=== PATIENT | male | born 1980 | race Caucasian/White ===

== ENCOUNTER 2023-12-11 08:18 | Outpatient (CLI) | payer BC, SELFPAY | END 2023-12-11 08:19 | disposition home or self-care (01) | LOC: FBOREF 08:18 | PROVIDERS: PCP Family Medicine; Visit Provider Family Medicine | DX: Z13.6 Encounter for screening for cardiovascular disorders (principal); K76.0 Fatty (change of) liver, not elsewhere classified; I10 Essential (primary) hypertension | CPT/HCPCS: 80061 ==

== ENCOUNTER 2024-09-04 07:10 | Outpatient (CLI) | payer BC, SELFPAY ==
--- NOTE | 2024-09-04 07:15 | CRLHL7_ITS ---
For Patients: As a result of the Century Cures Act, medical imaging exams and procedure reports are released immediately into your electronic medical record. You may view this report before your referring provider. If you have questions, please contact your health care provider. INDICATION: Abdominal pain COMPARISON: none TECHNIQUE: Real time harding scale imaging and color Doppler analysis was performed of the right upper quadrant. FINDINGS: Liver echotexture is increased. Liver measures 19.2 cm. No intrahepatic mass. There is a normal appearance of the hepatic IVC and proximal abdominal aorta. There is no evidence of ascites. The gallbladder is of normal size and there are 2 echogenic foci associated with the non dependent gallbladder wall measuring 4 millimeters each. The gallbladder wall measures 2 mm in thickness. The common bile duct is of normal size and measures 4 mm in diameter at the level of the lazaro hepatis. The pancreas appears normal. Cyst within the right kidney with peripheral calcifications measures 1.9 x 1.2 x 1.8 cm. The right kidney measures 11.9 cm in length. IMPRESSION: Hepatomegaly with hepatic steatosis. Gallbladder polyps measuring up to 4 millimeters. Bosniak 2 right renal cyst measuring 1.9 cm. Dictated by Floyd Sanders MD @ 09/04/2024 8:32:00 AM (Electronically Signed)
--- OUTSIDE RECORDS SUMMARY | 2024-09-05 00:31 | XMS_ITS | Clinical Summary ---
Author Organization [employer] [facility] Address [address] [place] [address] Care Team Providers Care Astronomy Department Chair Name Role Phone None Primary Care Provider Unavailabl e Pcp, No Unavailable Unavailable Allergies No known active allergies Medications allopurinoL (ZYLOPRIM) 300 mg tablet 2 Active gabapentin (NEURONTIN) 300 mg capsule TAKE ONE CAPSULE BY MOUTH EVERY NIGHT FOR 3 DAYS. IF SYMPTOMS NOT IMPROVED INCREASE NEEDED PER MED SCHEDULE TO MAX OF 3 CAPSULES 3 TIMES DAILY 1 Active albuterol HFA (PRO-AIR; VENTOLIN; PROVENTIL) 90 mcg/actuation inhalerIndicati ons:Cough Inhale 2 Puffs by mouth every 4 hours if needed (cough or wheezing). 1 Each 2 Active fenofibrate (LOFIBRA) 54 mg tablet Take 54 mg by mouth once daily. 2 Active amLODIPine (NORVASC) 5 mg tablet Take 5 mg by mouth. 2 Active fluticasone (50 mcg per actuation) nasal solution (FLONASE) Inhale 2 Sprays into affected nostril(s). 2 Active benzonatate (Tessalon Perles) 100 mg capsuleIndicati ons:Bronchitis Take 1 Capsule (100 mg) by mouth 3 times daily if needed for Cough. 21 Capsule 2 Active albuterol HFA (Ventolin HFA) 90 mcg/actuation inhalerIndicati ons:Bronchitis Inhale 2 Puffs by mouth 4 times daily if needed for Shortness Of Breath. 1 Each 2 Active Active Problems Problem Noted Date Diagnosed Date No Significant Past Medical History 09/21/2014 Acute bronchitis 05/10/2007 Overview (07/16/2013): Acute Bronchitis Acute sinusitis, unspecified 05/10/2007 Overview (07/16/2013): Acute Sinusitis Immunizations Immunization Administration Dates Next Due Tdap 08/14/2023,09/19/2007 Family History Medical History Relation Name Comments Diabetes Father GI Disease Mother Relation Name Status Comments Father Mother Social History Tobacco Use Types Packs/Day Years Used Date Smoking Tobacco: Former Cigarettes Smokeless Tobacco: Never Tobacco Cessation:Ready to Q uit: No; Counseling Given: Yes Alcohol Use Standard Drinks/Week Comments Yes 0 (1 standard drink = 0.6 oz pur e alcohol) Interpersonal Safety Answer Date Record ed Are you being hit, kicked, p ushed or yelled at (see row info)? 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 Gender Identity Not on file Sexual Orientation Not on file Obstetrics History Last Filed Vital Signs Vital Sign Reading Time Taken Comments Blood Pressure 195/87 08/14/2023 4:26 PM CDT Pulse 79 08/14/2023 4:26 PM CDT Temperature 36.9 C (98.4 F) 08/14/2023 4:26 PM CDT Respiratory Rate 18 08/14/2023 4:26 PM CDT Oxygen Saturation 95% 08/14/2023 4:26 PM CDT Inhaled Oxygen Concentration - - Weight 129.6 kg (285 lb 11.2 oz) 2021 12:15 PM CDT Height 182.9 cm (6') 09/20/2014 9:33 AM CDT Body Mass Index 38.75 09/20/2014 9:33 AM CDT Plan of Treatment Health Maintenance Due Date Last Done Comments Depression screening for age 12+ 1993 HIV for age 15-65 02/06/1996 BMI (ht and wt on same day) for age 18+ 1999 Hepatitis C screening for ag e 18-79 1999 Hepatitis B series for 19+ ( 1 of 3 - 19+ 3-dose series) 02/06/2000 Lipids for age 35-44 02/06/2016 COVID-19 vaccine series (2 - 2023- season) 2023 02/13/2021 Influenza Vaccine (Season Ended) 2024 Tetanus booster 08/13/2033 08/14/2023, 09/19/2007 Tdap Completed 08/14/2023, 09/19/2007 Pneumococcal series for age 6-49 Aged Out No longer eligible b ased on patient's age to complete this topic Insurance [id number] [facility] [place] [id number] [facility] Care Teams Astronomy Department Chair Relationship Specialty Start Date End Date None . PCP - General 02/10/15 Pcp, No . 03/15/12
--- OUTSIDE RECORDS SUMMARY | 2024-09-05 00:31 | XMS_ITS | Clinical Summary ---
Author Organization [facility] Address [address] [place] [address] Care Team Providers Care Eye Glass Frame Polisher Name Role Phone System, Pcp Not In Primary Care Provider Unavail able Source Comments You are receiving this document as you are listed as the primary care provider,follow-up provider, or the patient has been referred to you for consultation.This is in compliance with the Medicare andCommunity Regional Medical Cent[facility]aid EHR Incentive Program,which states Providers who transition their patient to another setting of careor provider of care or refers their patient to another provider of care shouldprovide summary care record for each transition of care or referral. [facility] Allergies No known active allergies Medications ALBUterol sulfate HFA 108 (90 BASE) MCG/ACT inhaler Inhale 1-2 Puffs every 4 hours as needed for Shortness of Breath. 18 g 0 6 Active Active Problems Problem Noted Date Diagnosed Date Lumbosacral radiculitis 09/20/2007 Overview (10/31/2016): LW Onset: 05/2007 ; Radiculopathy Lumbar 5 Left Immunizations Immunization Administration Dates Next Due TDAP (ADACEL) 09/19/2007 Social History Tobacco Use Types Packs/Day Years Used Date Smoking Tobacco: Every Day Cigarettes Smokeless Tobacco: Never Alcohol Use Standard Drinks/Week Comments Yes 0 (1 standard drink = 0.6 oz pur e alcohol) Sex and Gender Information Value Date Recorded Sex Assigned at Not on file Legal Sex Male 6:16 AM CDT Gender Identity Not on file Sexual Orientation Not on file Last Filed Vital Signs Vital Sign Reading Time Taken Comments Blood Pressure 148/88 02/20/2016 4:02 PM TEST DESIGNER Pulse 67 02/20/2016 4:02 PM TEST DESIGNER Temperature 36.9 C (98.5 F) 02/20/2016 4:02 PM TEST DESIGNER Respiratory Rate 16 02/20/2016 4:02 PM TEST DESIGNER Oxygen Saturation 95% 02/20/2016 4:02 PM TEST DESIGNER Inhaled Oxygen Concentration - - Weight 127.7 kg (281 lb 9.6 oz) 011 11:30 AM CDT Height 185.4 cm (6' 1) 03/02/2008 2:17 PM TEST DESIGNER Body Mass Index 37.15 03/02/2008 2:17 PM TEST DESIGNER Plan of Treatment Health Maintenance Due Date Last Done Comments Hep C Screening (Preventive Services) 1981 Adult Preventive Visit 1999 HepB Vaccine (1) 02/06/2000 Cholesterol 02/06/2016 DTaP/Tdap/Td Vaccine (2 - Tdap) 09/18/2017 8 COVID-19 Vaccine ( - 2023-2 5 season) 2023 Influenza Vaccine (Season Ended) 2024 Zoster/Shingles Vaccine (1 of 2) 2031 HIV Screening (Preventive Services) Completed 04/23/2007 HPV Vaccine Aged Out No longer eligi ble based on patient's age to complete this topic HepA Vaccine Aged Out No longer eligi ble based on patient's age to complete this topic Hib Vaccine Aged Out No longer eligi ble based on patient's age to complete this topic IPV (Polio) Vaccine Aged Out No longe r eligible based on patient's age to complete this topic MCV4 Vaccine Aged Out No longer eligi ble based on patient's age to complete this topic Meningococcal B Vaccine Aged Out No l onger eligible based on patient's age to complete this topic Pneumococcal Vaccine Aged Out No long er eligible based on patient's age to complete this topic Procedures Procedure Name Priority Date/Time Associated Diagnosis Comments HIV ANTIBODY Routine 04/23/2007 3:32 PM TEST DESIGNER from Last 3 Months or Most Recently Relevant to Health Maintenance Results * HIV Antibody (04/23/2007 3:32 PM TEST DESIGNER) HIV 1/HIV 2 Non Reac Non Reac HP CONVERSION 04/23/2007 3:32 PM TEST DESIGNER us Dot Honeycutt MD LAB_1 Final Result HP CONVERSION from Last 3 Months or Most Recently Relevant to Health Maintenance Insurance [place] [id number] [place] [id number] [facility] Member Subscriber Plan / Payer (Ef fective 2015-Present) Name:John Sanchez Relation to Subscriber:Self Name:John Sanchez Payer ID:[id number] (NAIC) Group ID:[id number] Type:Commercial Address: [facility] [address] [place] [address] Care Teams Eye Glass Frame Polisher Relationship Specialty Start Date End Date System, Pcp Not In PCP - General 11/10/15
--- OUTSIDE RECORDS SUMMARY | 2024-09-05 00:31 | XMS_ITS | Encounter Summary ---
Author Organization [facility] Address [address] [place] [address] Care Team Providers Care Carton Forming Machine Tender Name Role Phone None Reported, Pcp Primary Care Provider Unavail able Reason for Visit * Reason Onset Date Comments Health Maintenance 07/28/2024 Encounter Details Date Type Department Care Team (Latest Contact Info) Description 07/28/2024 Clinical Communication Department of Family Medicine, [facility], in [place], [place] [address] [place] [id number] Mesfin Brunson D.O. [address] [place] [id number] Health Maintenance Social History Tobacco Use Types Packs/Day Years Used Date Smoking Tobacco: Former Smokeless Tobacco: Never Comments:quit dec 2019 Alcohol Use Standard Drinks/Week Comments Not Currently 0 (1 standard drink = 0.6 oz pur e alcohol) socailly once in awhile [facility] Utilities Answer Date Recorded In the past 12 months has [facility] [email or web address], oil, or water [employer] threatened to shut off services in your home? Patient declined 06/06/2023 Humiliation, Afraid, Rape, and Kick questionnair e Answer Date Recorded Within the last year, have y ou been afraid of your partner or ex-partner? Patient declined 10/17/2021 Within the last year, have y ou been humiliated or emotionally abused in other ways by your partner or ex-partner? Patient declined 10/17/2021 Within the last year, have y ou been kicked, hit, slapped, or otherwise physically hurt by your partner or ex-partner? Patient declined 10/17/2021 Within the last year, have y ou been raped or forced to have any kind of sexual activity by your partner or ex-partner? Patient declined 10/17/2021 Hunger Vital Sign Answer Date Recorded Within the past 12 months, y ou worried that your food would run out before you got the money to buy more. Patient declined Within the past 12 months, t he food you bought just didn't last and you didn't have money to get more. Patient declined PRAPARE - Transportation Answer Date Re corded In the past 12 months, has l ack of transportation kept you from medical appointments or from getting medications? Patient declined 06/06/2023 In the past 12 months, has l ack of transportation kept you from meetings, work, or from getting things needed for daily living? Patient declined 06/06/2023 Housing Stability Answer Date Recorded What is your living situation today? 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 - 07/28/2024 11:43 AM CDT I reached out to the patient today via phone call and I was able to reach the patient. This is the 1st contact by the [facility] team to schedule preventive care services. The preventive care topics I outreached about include: Follow Up PCP Visit The outcome of this communication includes: PCP Change - Request Sent The [facility] team will contact the patient again if patient returns to [place] primary care. Next Primary Care appointment: does not have a visit scheduled in Primary Care Last appointment with their PCP: Not available Additional services offered: None Naila Camargo LPN Preventative Health Specialist documented in this encounter Plan of Treatment Not on file documented as of this encounter Visit Diagnoses Not on filedocumented in this encounter Care Teams Carton Forming Machine Tender Relationship Specialty Start Date End Date None Reported, Pcp PCP - General Family Medicine 07/28/24 documented as of this encounter
--- OUTSIDE RECORDS SUMMARY | 2024-09-05 00:32 | XMS_ITS | Clinical Summary ---
Author Organization [facility] Address [address] [place] [address] Care Team Providers Care Lending Advisor Name Role Phone None Reported, Pcp Primary Care Provider Unavail able Source Comments Patient records contain information from all sites at [facility]. For routine questions regarding patient records, call [phone] during business hours, M-F 8:00 AM - 5:00 PM Central Time. Record requests for emergency care only can be directed to [phone] at any time.[facility] Allergies No known active allergies Medications * This document contains information received from the source organization and may not represent a complete record from that organization. ibuprofen (ADVIL,MOTRIN) 100 mg tablet Take 200 mg by mouth every 4 (four) hours. Active naproxen sodium (ALEVE/ANAPROX) 220 mg tablet Take 220 mg by mouth 2 (two) times a day as needed for pain. Active fenofibrate micronized (LOFIBRA) 67 mg capsule TAKE 1 CAPSULE BY MOUTH ONCE DAILY IN THE MORNING BEFORE BREAKFAST 90 capsule 3 3 Active amLODIPine (NORVASC) 5 mg tabletIndicatio ns:Hypertension Essential Primary Take 1 tablet (5 mg total) by mouth daily. 90 tablet 3 3 Active albuterol 90 mcg/actuation inhaler Inhale 2 puffs 4 (four) times a day as needed for shortness of breath. 2 Active azelastine (ASTELIN) 137 mcg/spray (0.1 %) nasal spray Administer 2 sprays into each nostril 2 (two) times a day. Use in each nostril as directed 30 mL 11 3 Active cyclobenzaprine (FLEXERIL) 10 mg tablet Take 1 tablet (10 mg total) by mouth 3 (three) times a day as needed for muscle spasms. 30 tablet 4 Active fluticasone propionate (FLONASE) 50 mcg/actuation nasal spray Use 2 spray(s) in each nostril once daily 48 g 3 4 Active albuterol (Ventolin HFA) 90 mcg/actuation inhaler Inhale 2 puffs every 4 (four) hours as needed for wheezing or shortness of breath for up to 10 days. 18 g 4 Active allopurinoL (Zyloprim) 300 mg tablet Take 1 tablet by mouth once daily 90 tablet 3 4 Active escitalopram (Lexapro) 10 mg tablet TAKE 1 TABLET BY MOUTH DAILY 90 tablet 4 Active Active Problems Problem Noted Date Diagnosed Date Morbid Severe Obesity Due To Excess Calories Sinusitis Chronic Maxillary 02/11/2023 Hypertension Essential Primary 08/23/2021 Gout 12/15/2019 Obesity Body Mass Index 30-39.9 Adult 12/15/2019 Pain Low Back Unspecified 12/15/2019 Nicotine Dependence Cigarettes In Remission 08/2019 Radiculopathy Lumbar Fourth Encounters Date Type Department Care Team Description 07/28/2024 Clinical Communication Department of Family Medicine, [facility], in [address] [phone] Mesfin Brunson, D.O. Health Maintenance from Last 3 Months Immunizations Immunization Administration Dates Next Due DTaP (Infanrix, Tripedia) 09/22/1986 HepB Adult (HEPLISAV-B) 03/28/2023(Deferred: Pat ient Refused) Polio, Unspecified 09/22/1986 SARS-COV-2 (COVID-19) - MODE RNA (12 YEARS AND OLDER) Fall Seasonal 03/28/2023(Deferred: Patient Refused) Td Preservative Free (TENIVA C, DECAVAC) 12/14/2019 Tdap 09/19/2007 influenza trivalent vaccine (6 months and older)(PF) 03/28/2023(Deferred: Patient Refused) Family History Medical History Relation Name Comments Diabetes Father Heart attack Maternal Grandfather Heart attack Paternal Grandfather Relation Name Status Comments Father Maternal Grandfather Paternal Grandfather Social History Tobacco Use Types Packs/Day Years Used Date Smoking Tobacco: Former Smokeless Tobacco: Never Tobacco Cessation:Counseling Given: Not Answered Comments:quit dec 2019 Alcohol Use Standard Drinks/Week Comments Not Currently 0 (1 standard drink = 0.6 oz pur e alcohol) socailly once in awhile [facility] Utilities Answer Date Recorded In the past 12 months has e [employer], gas, oil, or water [employer] threatened to shut off services in your [...] AM CDT Legal Sex Male 9:29 PM CANADIAN BACON TIER Gender Identity Male 05/05/2020 9:12 AM CANADIAN BACON TIER Sexual Orientation Straight 05/05/2020 9: 12 AM CANADIAN BACON TIER Last Filed Vital Signs Vital Sign Reading Time Taken Comments Blood Pressure 144/51 06/03/2023 10:50 AM CDT Pulse 68 06/03/2023 10:50 AM CDT Temperature 36.3 C (97.3 F) 06/03/2023 10:45 AM CDT Respiratory Rate 16 06/03/2023 10:45 AM CDT Oxygen Saturation 100% 06/03/2023 10:50 AM CDT Inhaled Oxygen Concentration - - Weight 121 kg (265 lb 10.5 oz) 05/22/2023 4:23 P M CDT Height 182.9 cm (6' 0.01) 03/28/2023 11:[address] Body Mass Index 36.02 03/28/2023 11:15 AM CANADIAN BACON TIER Plan of Treatment Health Maintenance Due Date Last Done Comments Hepatitis C Screening 1981 IPV Vaccines (2 of 3 - 4-dose series) 10/20/1986 09/22/1986 Hepatitis B Vaccines (1 of 3 - 19+ 3-dose series) 02/06/2000 COVID-19 Vaccine (2 - season) 2023 02/13/2021 Influenza Vaccine (#1) 2023 Depression Screening (Annual PHQ-2) 03/11/2024 Office Visit for Blood Pressure Check / Re-check 03/28/2024 03/28/2023 Lipid (Cholesterol) Screening 11/27/2026 11/27/2021, 08/18/2021, 07/17/2021, Additional history exists DTaP,Tdap,and Td Vaccines (5 - Td or Tdap) 08/13/2033 08/14/2023, 12/14/2019, 09/19/2007, Additional history exists HPV Vaccines Aged Out No longer eligi ble based on patient's age to complete this topic Pneumococcal vaccine (0-49 years) Aged Out No longer eligible based on patient's age to complete this topic Procedures Procedure Name Priority Date/Time Associated Diagnosis Comments LIPID PANEL, S Routine 11/27/2021 8:29 AM CDT Hypertriglyceridemia from Last 3 Months or Most Recently Relevant to Health Maintenance Results * (ABNORMAL) Lipid Panel (11/27/2021 8:29 AM CDT) Triglycerides 465(H) mg/dL 11/27/2021 8:52 AM CDT [facility] Comment: ----REFERENCE VALUE---- Normal: <150 mg/dL Borderline High: 150-199 mg/dL High: 200-499 mg/dL Very High: > or =500 mg/dL Cholesterol, Total 196 mg/dL 2021 8:52 AM CDT [facility] Comment: ----REFERENCE VALUE---- Desirable: < 200 mg/dL Borderline High: 200 - 239 mg/dL High: > or = 240 mg/dL Cholesterol, LDL, Calculated 90 mg/dL 11/27/2021 8:52 AM CDT [facility] Comment: ----REFERENCE VALUE---- Desirable: <100 mg/dL Above Desirable: 100-129 mg/dL Borderline High: 130-159 mg/dL High: 160-189 mg/dL Very High: >=190 mg/dL ----ADDITIONAL INFORMATION---- LDL cholesterol calculated using the Nair/NIH equation. Cholesterol, HDL 29(L) >=40 mg/dL 11/28/19 8:52 AM CDT [facility] Cholesterol, Non-HDL, Calculated 167(H) mg/dL 11/27/2021 8:52 AM CDT [facility] Comment: ----REFERENCE VALUE---- Desirable: <130 mg/dL Above Desirable: 130-159 mg/dL Borderline High: 160-189 mg/dL High: 190-219 mg/dL Very High: > or =220 mg/dL Fasting (8 HR or more) Yes 11/27/2021 8:29 AM CDT [facility] Blood (Blood, Venous) 11/27/2021 8:29 AM CDT 11/27/2021 8:29 AM CDT us Isidro Dasilva P.A.-C., M.S. LAB BLOOD ADD-ON Fin al Result [facility] [address] [place] [id number], [facility] in [place] [place] [id number] from Last 3 Months or Most Recently Relevant to Health Maintenance Insurance [id number] [place] [id number] [facility] [place] [address] Care Teams Lending Advisor Relationship Specialty Start Date End Date None Reported, Pcp PCP - General Family Medicine 07/28/24
== END 2024-09-04 07:11 | disposition home or self-care (01) ==
LOC: US 07:10
PROVIDERS: PCP Family Medicine; Visit Provider Family Medicine
DX: R10.9 Unspecified abdominal pain (principal); R16.0 Hepatomegaly, not elsewhere classified; K76.0 Fatty (change of) liver, not elsewhere classified; K82.4 Cholesterolosis of gallbladder; N28.1 Cyst of kidney, acquired
CPT/HCPCS: 76705

== ENCOUNTER 2024-10-06 13:51 | Outpatient (CLI) | payer BC, SELFPAY ==
--- NOTE | 2024-10-06 13:45 | CRLHL7_ITS ---
For Patients: As a result of the Century Cures Act, medical imaging exams and procedure reports are released immediately into your electronic medical record. You may view this report before your referring provider. If you have questions, please contact your health care provider. INDICATION: Low back pain. COMPARISON: None. TECHNIQUE: Sagittal T1, T2, and STIR sequences. Axial T1 and T2 weighted sequences. FINDINGS: Lumbar curve convex the left. In the sagittal plane, normal alignment. No fractures. No vertebral body loss of height. No spondylolisthesis. No ligamentous injury. No suspicious osseous lesions. Normal conus terminates at L1. Mild marrow edema of the articular processes of the left L3-4 facet joint which may be secondary to stress reaction or mild inflammation facet arthritis. T12-L1 L1-2: No spinal canal or neural foraminal narrowing. L2-3: Disc degeneration diffuse disc bulge eccentric to the left. No narrowing of spinal canal. No neural foraminal narrowing. L3-4: Disc degeneration loss disc height. Modic type 1 endplate changes. Diffuse disc bulge eccentric to the right. Mild narrowing of spinal canal. Moderate severe narrowing of the right neural foramen. No narrowing of left neural foramen. Potential impingement of the exiting right L3 nerve root. Mild facet arthropathy. L4-5: Disc degeneration and diffuse disc bulge eccentric to the left. Mild narrowing of the spinal canal. No narrowing of the right neural foramen. Mild to moderate narrowing of the left neural foramen. Mild facet arthropathy. L5-S1: Disc degeneration. Diffuse disc bulge. No narrowing of the spinal canal. No impingement of the traversing S1 nerve roots. Mild narrowing of bilateral foramina. Degenerative changes of the SI joints. Normal paraspinal soft tissues. IMPRESSION: 1. Normal alignment. No fractures 2. Lumbar spondylosis 3. At L3-4, mild narrowing of the spinal canal. Moderate to severe narrowing of the right neural foramen. Potential impingement of the exiting right L3 nerve root 4. At L4-5, mild narrowing of the spinal canal. [id number] narrowing of the left neural foramen. 5. At L5-S1, mild narrowing of the bilateral neural foramina Dictated by Mayco Cifuentes MD @ 10/07/2024 1:20:28 PM (Electronically Signed)
== END 2024-10-06 13:52 | disposition home or self-care (01) ==
LOC: MRI 13:52
PROVIDERS: PCP Family Medicine; Visit Provider Family Medicine
DX: M54.50 Low back pain, unspecified (principal); M47.896 Other spondylosis, lumbar region; M51.26 Other intervertebral disc displacement, lumbar region; M51.27 Other intervertebral disc displacement, lumbosacral region; G89.29 Other chronic pain; M54.30 Sciatica, unspecified side
CPT/HCPCS: 72148

== ENCOUNTER 2024-11-10 13:03 | Outpatient (CLI) | payer BC, SELFPAY | END 2024-11-10 13:04 | disposition home or self-care (01) | LOC: INJ CL 13:04 | PROVIDERS: PCP Family Medicine; Visit Provider Family Medicine | DX: M54.16 Radiculopathy, lumbar region (principal); M51.369 Other intervertebral disc degeneration, lumbar region without mention of lumbar back pain or lower extremity pain | CPT/HCPCS: 64483; J1100; J2250; J3010; Q9966 ==

== ENCOUNTER 2024-12-16 11:07 | Outpatient (CLI) | payer BC, SELFPAY | END 2024-12-16 11:08 | disposition home or self-care (01) | PROVIDERS: PCP Family Medicine; Visit Provider Family Medicine | DX: I10 Essential (primary) hypertension (principal) | CPT/HCPCS: 80048; 85025 ==

== ENCOUNTER 2024-12-18 10:36 | Day surgery (SDC) | payer BC, SELFPAY ==
[2024-12-18] VITALS (17 sets, daily range): BP systolic 134–199; BP diastolic 70–113; PULSE 78–111; RESP 10–22; TEMP 35.9–37.3; O2SAT 88–100; BMI 37.5
[2024-12-18] MEDS: LACTATED RINGERS 1000 ML 1,000 ML 100 ML IV ×2 (10:55→14:00)
[2024-12-18] MEDS: SODIUM CHLORIDE 0.9 % (FLUSH) 10 ML SYRINGE IVF (11:37)
[2024-12-18] MEDS: BUPIVACAINE 0.5%/EPINEPHRINE 0.9 MG (30.9 ML) INJECTION (13:09)
[2024-12-18] MEDS: AYR SALINE NASAL GEL 1 APPLIC NOSTRIL-B (13:13)
[2024-12-18] MEDS: MUPIROCIN 1 GM PACKET 1 APPLIC TOPICAL (13:27)
--- NOTE | 2024-12-18 13:35 | P.ENTPROC_ITS ---
Procedure Note Date of procedure: 12/18/24 Procedure: Preop diagnosis nasal obstruction, deviated septum, bilateral inferior turbinate hypertrophy Postoperative diagnosis same Procedure nasal septoplasty, submucous partial resection inferior turbinates bilateral Packing bilateral stents, bilateral Merocel, bilateral positive pack dissolvable Under general trach anesthesia patient was prepped draped usual fashion nose decongested injected. The right inferior turbinate was outfractured. A stab incision was made in the anterior head and a conservative anterior submucous resection performed. The Coblation was used for hemostasis and to cauterize intramurally along the inferior 10%. This was repeated on the left side in identical fashion A right hemitransfixion incision was made bilateral anterior and posterior tunnels were created. A vertical incision was made cartilage from bone the posterior deflected portions of septal bone resected a piece trimmed and returned to intraseptal space. Anteriorly the septum was resected inferiorly about 1 mm strip which allowed the anterior septum to return to midline. The hemitransfixion was closed with 2 4-0 fast-absorbing Vicryl so. Silastic stents were secured with 3-0 nylon. Positive pack was placed in the mi ddle meatus and then below that a Merocel pack was placed on each side. The patient procedure well was taken recovery in satisfactory condition blood loss was 50 mL. Surgeon: Rigo Woods MD
--- NOTE | 2024-12-18 13:48 | P.ANES_ITS ---
Anesthesia Charges Start Date/Time Anesthesia Start Date: 12/18/24 Anesthesia Start Time: 12:50 Stop Date/Time Anesthesia Stop Date: 12/18/24 Anesthesia Stop Time: 13:48 Coding CPT Codes CPT Codes: ANESTH NOSE/SINUS SURGERY - 35061 ([id number]) P3 - PATIENT W/SEVERE SYS DISEASE, QK - FURNACE CHARGER 2-4 CNCRNT ANES PROC, QX - MARKETING STRATEGY LEAD SVC W/ MD MED DIRECTION
--- NOTE | 2024-12-18 13:48 | W.ANESCHARGE ---
Anesthesia Charges Start Date/Time Anesthesia Start Date: 12/18/24 Anesthesia Start Time: 12:50 Stop Date/Time Anesthesia Stop Date: 12/18/24 Anesthesia Stop Time: 13:48 Coding CPT Codes CPT Codes: ANESTH NOSE/SINUS SURGERY - 30706 ([id number]) P3 - PATIENT W/SEVERE SYS DISEASE, QK - ACT ENGLISH TUTOR 2-4 CNCRNT ANES PROC, QX - FOOT CASTER SVC W/ MD MED DIRECTION
[2024-12-18] MEDS: METOPROLOL TARTRATE 1 MG/ML inj 5 MG IVP (15:30)
[2024-12-18] MEDS: ACETAMINOPHEN 500 MG TABLET PO (18:12)
--- NOTE | 2024-12-18 18:39 | PC.NURSE ---
Progress Note Pt to floor at 1430, Pt a/o x4, pain 5-7/10 Meds given per mar. Up adlib, Dressing changed as needed due to saturation. Pt denies nausea able to tolerate reg diet.
[2024-12-19 03:14] VITALS: BP 136/70; PULSE 70; RESP 18; TEMP 36.7; O2SAT 98
[2024-12-19 07:00] VITALS: BP 148/77; PULSE 87; RESP 12; TEMP 35.9; O2SAT 95
--- NOTE | 2024-12-19 08:21 | PM.EN ---
Chart Event Note Date Seen: 12/19/24 Chart Event Note: Patient followed by hospitalist team, noted to have elevated BP, started Lisinopril 10mg in addition to home Amlodipine. Routine PCP f/u.
--- NOTE | 2024-12-19 09:58 | PC.NURSE ---
D/C Note Pt cooperative with cares, A/o x4, Ind in room. Pt and spouse given education verbally and written about wound care, medications and activity orders. Pt and spouse had no concerns at time of discharge, IV removed, cath tip intact, Pt left accompanied by spouse at 09:05
== END 2024-12-19 09:05 | disposition home or self-care (01) ==
LOC: OR 10:37 → MEDSURG 14:01
PROVIDERS: PCP Family Medicine; Visit Provider Otolaryngology
PROC: (CPT 30520; principal; 2024-12-18 12:15)
DX: J34.2 Deviated nasal septum (principal); J34.3 Hypertrophy of nasal turbinates; J34.89 Other specified disorders of nose and nasal sinuses
CPT/HCPCS: 30520; 30140; 00160; A9270; J0330; J1100; J1171; J2250; J2405; J2704; J3010; J3490; J7030; J7120